=== PATIENT | female | born 1950 | race Caucasian/White ===

== ENCOUNTER → 2016-09-19 | Outpatient (CLI) | payer MEDICARE, OTHER ==
[~2016-09-19] VITALS: Ht 152.4 cm; Wt 45.8 kg
[~2016-09-19] MED LIST: LIDOCAINE 2% INJ 100 MG/5 ML SDV (FOR ANES.) As Ordered ONE; NS 500 ML IV SCH; PROPOFOL 200 MG/20 ML VIAL As Ordered ONE; no medications
--- NOTE | 2016-09-19 15:49 | ROOR ---
Patient Name: Kayleen Howard Procedure Date: 09/19/2016 3:24 PM Date of : 1950 Age: 66 Room: [facility] Gender: Female Note Status: Finalized Procedure: Colonoscopy to Cecum + ileoscopy + Hot Snare Polypectomy + Hemoclips Indications: Abdominal pain in the right lower quadrant Providers: Paul Sherwood MD Referring MD: MATTHEW WRIGHT MD Requesting Provider: Medicines: Monitored Anesthesia Care Complications: No immediate complications. Procedure: Pre-Anesthesia Assessment: - The heart rate, respiratory rate, oxygen saturations, blood pressure, adequacy of pulmonary ventilation, and response to care were monitored throughout the procedure. The Colonoscope was introduced through the anus and advanced to the cecum, identified by appendiceal orifice and ileocecal valve. The colonoscopy was performed without difficulty. The patient tolerated the procedure well. The quality of the bowel preparation was excellent. Findings: The perianal and digital rectal examinations were normal. Non-bleeding internal hemorrhoids were found during retroflexion. The hemorrhoids were small and Grade I (internal hemorrhoids that do not prolapse). A medium polyp was found at 10 cm proximal to the anus. The polyp was semi-pedunculated. The polyp was removed with a hot snare. Resection and retrieval were complete. To prevent bleeding after the polypectomy, one hemostatic clip was successfully placed (MR conditional). There was no bleeding at the end of the procedure. The exam was otherwise without abnormality on direct and retroflexion views. The terminal ileum appeared normal. The exam was otherwise without abnormality. Impression: - Non-bleeding internal hemorrhoids. - One medium polyp at 10 cm proximal to the anus, removed with a hot snare. Resected and retrieved. Clip (MR conditional) was placed. - The examination was otherwise normal on direct and retroflexion views. - The examined portion of the ileum was normal. - The examination was otherwise normal. - The exam was otherwise normal to the cecum. Recommendation: - Patient has a contact number available for emergencies. The signs and symptoms of potential delayed complications were discussed with the patient. Return to normal activities tomorrow. Written discharge instructions were provided to the patient. - High fiber diet. - Discharge patient to home. - Continue present medications. - Await pathology results. - Telephone GI clinic for pathology results in 1 week. - Repeat colonoscopy for surveillance based on pathology results. - Return to referring physician. - The findings and recommendations were discussed with the patient's family. Paul Sherwood MD Paul Sherwood MD 09/19/2016 3:49:22 PM This report has been signed electronically. Number of Addenda: 0 Note Initiated On: 09/19/2016 3:24 PM Estimated Blood Loss: Estimated blood loss: none.
[2016-09-19 16:00] VITALS: BP 122/60
== END ==
LOC: M OPP 13:45
PROVIDERS: ATTEND Internal Medicine Gastroenterology
DX: R10.31 Right lower quadrant pain (principal); K64.0 First degree hemorrhoids; K62.1 Rectal polyp; F17.210 Nicotine dependence, cigarettes, uncomplicated; M19.90 Unspecified osteoarthritis, unspecified site

== ENCOUNTER → 2016-10-09 | Outpatient (REF) | payer MEDICARE, OTHER ==
[~2016-10-09] MED LIST changes: -LIDOCAINE 2% INJ 100 MG/5 ML SDV (FOR ANES.) As Ordered ONE; -NS 500 ML IV SCH; -PROPOFOL 200 MG/20 ML VIAL As Ordered ONE
[2016-10-09 19:21] LABS: RBC, URINE 30-40 /hpf (0-3)
[2016-10-09 19:22] LABS: BACTERIA, URINE SMALL AMOUNT; MICROSCOPIC EXAM PERFORMED; SQUAMOUS EPITHELIAL CELL URINE SMALL AMOUNT /hpf (SMALL AMT)
[2016-10-09 19:29] LABS: HYALINE CAST, URINE NONE SEEN /lpf (0-1)
== END ==
LOC: M SMT 17:00
PROVIDERS: ATTEND Specialist
DX: R31.9 Hematuria, unspecified (principal)
CPT/HCPCS: 81015; 87086; G0463

== ENCOUNTER → 2016-12-07 | Outpatient (REF) | payer MEDICARE | LOC: M SMT 17:02 | PROVIDERS: ATTEND Specialist | DX: R31.9 Hematuria, unspecified (principal) | CPT/HCPCS: 52000; 88108; G0463 ==